=== PATIENT | female | born 1990 | race African-American/Black ===

== ENCOUNTER 2017-06-21 00:20 | Emergency (ER) | payer MEDICAID ==
[~2017-06-21] VITALS: Ht 165.1 cm; Wt 74.0 kg
[2017-06-21 01:25] VITALS: BP 132/103
== END 2017-06-21 01:45 | disposition home or self-care (01) ==
LOC: ER 00:20
DX: B35.3 Tinea pedis (principal)
CPT/HCPCS: 81025; 99282; Z7610

== ENCOUNTER 2017-06-22 10:28 | Emergency (ER) | payer MEDICAID ==
[~2017-06-22] VITALS: Ht 165.1 cm; Wt 74.0 kg
[2017-06-22 10:32] VITALS: BP 143/102
== END 2017-06-22 11:04 | disposition home or self-care (01) ==
LOC: ER 10:44
DX: B35.3 Tinea pedis (principal); Z51.89 Encounter for other specified aftercare; I10 Essential (primary) hypertension; F12.10 Cannabis abuse, uncomplicated
CPT/HCPCS: 99281

== ENCOUNTER 2018-07-16 19:49 | Emergency (ER) | payer MEDICAID ==
[~2018-07-16] VITALS: Ht 162.6 cm; Wt 87.0 kg
[2018-07-16] MEDS ORDERED: LABETALOL HCL 200MG TABLET PO SCH (21:45)
[2018-07-16] MEDS ORDERED: ACETAMINOPHEN 500MG TABLET PO ONE (21:45)
[2018-07-16 22:12] LABS: CHLORIDE 106 mEq/L (98-107)
[2018-07-16 22:14] LABS: BASOPHILS % 0.5 % (0.0-2.0); EOSINOPHILS % 6.8 % (0.0-5.0); HEMATOCRIT. 39.2 % (36.0-48.0); HEMOGLOBIN. 13.7 g/dL (12.0-16.0); LYMPHOCYTES % 27.6 % (20.0-50.0); MEAN CORPUSCULAR VOLUME 83.3 fL (81.0-99.0); MONOCYTES % 6.1 % (2.0-8.0); PLATELET 199 x1000/uL (130-400); RED BLOOD CELL COUNT 4.71 mill/uL (4.2-5.4); RED CELL DISTRIBUTION WIDTH 13.1 % (11.6-14.6)
[2018-07-16 22:22] LABS: HCG SCREEN POSITIVE
[2018-07-16] MEDS ORDERED: METOCLOPRAMIDE HCL 10MG TABLET PO ONE (22:30)
[2018-07-16 22:36] LABS: B-HCG QUANTITATIVE 57180 mIU/mL (<3)
[2018-07-16] MEDS ORDERED: SODIUM CHLORIDE 0.9% 1,000 ML IV ONE (22:39)
[2018-07-17 00:59] VITALS: BP 125/83
== END 2018-07-17 00:59 | disposition home or self-care (01) ==
LOC: ER 19:49
DX: O29.41 Spinal and epidural anesthesia induced headache during pregnancy, first trimester (principal); O26.891 Other specified pregnancy related conditions, first trimester; R51 Headache; R11.2 Nausea with vomiting, unspecified; F12.10 Cannabis abuse, uncomplicated; Z3A.13 13 weeks gestation of pregnancy
CPT/HCPCS: 36415; 76801; 81025; 84702; 84703; 86850; 86900; 96360; 99284; J7030; J8597